=== PATIENT | female | born 1985 | race Caucasian/White ===

== ENCOUNTER → 2017-02-21 | Outpatient (CLI) | payer OTHER ==
[~2017-02-21] MED LIST: BIRTH CONTROL PO; INSULIN PUMP SQ-INSULIN; LEVO100T5 PO
[2017-02-21 12:12] LABS: HEMATOCRIT 41.6 % (34.6-47.8); HEMOGLOBIN 14.1 g/dL (11.7-16.4); WHITE BLOOD COUNT 9.7 x10^3/uL (3.4-10)
[2017-02-21 12:13] LABS: ASPARTATE AMINO TRANSFERASE 12 U/L (15-37); BLOOD UREA NITROGEN 12 mg/dL (7-18)
[2017-02-21 13:11] LABS: PATH.CAST-FLAG NOT PRESENT; SPERM-FLAG NOT PRESENT; SRC-FLAG NOT PRESENT; XTAL-FLAG NOT PRESENT; YLC-FLAG NOT PRESENT
== END | disposition home or self-care (01) ==
LOC: LAB 11:18
PROVIDERS: ATTEND Nurse Practitioner Family
DX: E10.65 Type 1 diabetes mellitus with hyperglycemia (principal); R21 Rash and other nonspecific skin eruption; M25.50 Pain in unspecified joint; R76.0 Raised antibody titer
CPT/HCPCS: 36415; 80053; 80061; 81001; 82043; 82306; 82570; 83036; 84156; 84439; 84443; 85025; 85651; 86140; 86160; 86225; 86235; 87077; 87086

== ENCOUNTER → 2017-06-04 | Outpatient (CLI) | payer OTHER | END | disposition home or self-care (01) | LOC: CFH 12:17 | PROVIDERS: ATTEND Physical Medicine & Rehabilitation | DX: M50.33 Other cervical disc degeneration, cervicothoracic region (principal); M54.81 Occipital neuralgia | CPT/HCPCS: 72141 ==

== ENCOUNTER → 2018-01-25 | Outpatient (CLI) | payer OTHER ==
[2018-01-25 08:31] LABS: ALANINE AMINOTRANSFERASE 24 U/L (12-78); ALBUMIN 3.5 g/dL (3.4-5.0); ANION GAP 7 mmol/L (5-15); CALCIUM 8.3 mg/dL (8.5-10.1); CHLORIDE 107 mmol/L (98-107)
[2018-01-25 08:40] LABS: ALKALINE PHOSPHATASE 48 U/L (45-117); BILIRUBIN,TOTAL 0.5 mg/dL (0.2-1.0); CHOL/HDL RATIO 2.7; CHOLESTEROL, TOTAL 153 mg/dL (140-239); CREATININE 0.72 mg/dL (0.55-1.02); FREE T4 (FREE THYROXINE) 1.37 ng/dL (0.76-1.46); HDL CHOL % 37 % (28-40); HDL CHOLESTEROL (DIRECT) 57 mg/dL (40-60); LDL CHOLESTEROL,CALCULATED 83 mg/dL (54-169); LDL/HDL RATIO 1.5 (0.5-3.0); TOTAL PROTEIN 7.3 g/dL (6.4-8.2); TRIGLYCERIDES 67 mg/dL (50-200); VLDL CHOLESTEROL 13 mg/dL (0-25)
== END | disposition home or self-care (01) ==
LOC: LAB 08:07
PROVIDERS: ATTEND Nurse Practitioner Family
DX: E10.65 Type 1 diabetes mellitus with hyperglycemia (principal)
CPT/HCPCS: 36415; 80053; 80061; 82043; 82306; 84439; 84443

== ENCOUNTER 2019-07-13 09:44 | Inpatient (IN) | payer OTHER ==
[~2019-07-13] VITALS: Ht 172.7 cm; Wt 69.1 kg
[2019-07-13] MEDS ORDERED: SODIUM CHLORIDE 0.9% 1,000 ML IV ONE ×2 (10:03→11:51)
--- NOTE | 2019-07-13 10:12 | NUR ---
PT HERE STATING "I THINK I'M IN DKA." PT STATES BLOOD SUGAR AT HOME IS "TOO HIGH TO READ." PT IS A TYPE 1 DIABETIC, WEARS INSULIN PUMP. PT AAO X 4, ROOM AIR, CALL LIGHT WITHIN REACH. PIV ESTABLISHED, LABS DRAWN, IV FLUIDS INFUSING. MD AT BEDSIDE FOR ASSESSMENT. PT DRESSED IN GOWN AND ATTACHED TO ALL MONITORS. EKG COMPLETED. PT STATES PREVIOUSLY NAUSEOUS AND VOMITTING BUT DENIES SYMTPOMS NOW, STATES "I'M THIRSTY."
[2019-07-13] MEDS ORDERED: SODIUM CHLORIDE 0.9% 1,000ML IVBOLUS ONE (10:30)
[2019-07-13] MEDS ORDERED: SODIUM CHLORIDE FLUSH 10ML SYR IVF ONE (10:30)
[2019-07-13 10:54] LABS: BASOPHILS # (AUTO) 0.04 x10^3/uL (0-0.1); BASOPHILS % (AUTO) 0 % (0-1); EOSINOPHILS # (AUTO) 0.07 x10^3/uL (0-0.4); EOSINOPHILS % (AUTO) 1 % (1-7); LYMPHOCYTES # (AUTO) 1.93 x10^3/uL (1-3.4); LYMPHOCYTES % (AUTO) 17 % (22-44); MD NO; MEAN CORPUSCULAR HGB CONC 33.8 g/dL (32.4-35.8); MEAN CORPUSCULAR VOLUME 94.7 fL (80-100); MEAN PLATELET VOLUME 8.8 fL (7.4-10.4); MONOCYTES # (AUTO) 0.36 x10^3/uL (0.2-0.8); MONOCYTES % (AUTO) 3 % (2-9); NEUTROPHILS # (AUTO) 9.25 x10^3/uL (1.8-6.8); NEUTROPHILS % (AUTO) 79 % (42-75); PLATELET COUNT 373 x10^3/uL (130-400); RED BLOOD COUNT 4.95 x10^6/uL (3.82-5.3); RED CELL DISTRIBUTION WIDTH 13.1 % (9.6-15.2)
[2019-07-13] MEDS ORDERED: MAALOX/HYOSCYAMINE/LIDOCAINE 45 ML BTL ONE (10:59)
[2019-07-13] MEDS ORDERED: MAALOX/HYOSCYAMINE/LIDOCAINE 45 ML BTL PO ONE (11:00)
--- NOTE | 2019-07-13 11:01 | NUR ---
PT MEDICATED PER ORDER.
[2019-07-13 11:06] LABS: ALANINE AMINOTRANSFERASE 29 U/L (12-78); ALBUMIN 4.5 g/dL (3.4-5.0); ANION GAP 23 mmol/L (5-15); CALCIUM 9.4 mg/dL (8.5-10.1); CHLORIDE 94 mmol/L (98-107)
[2019-07-13 11:12] LABS: ACETONE, SERUM Large (80mg/dL) mg/dL (Negative)
[2019-07-13 11:12] LABS: ALKALINE PHOSPHATASE 78 U/L (45-117); BILIRUBIN,TOTAL 1.9 mg/dL (0.2-1.0); CREATININE 1.45 mg/dL (0.55-1.02); TOTAL PROTEIN 9.1 g/dL (6.4-8.2)
--- NOTE | 2019-07-13 11:31 | NUR ---
SECOND PIV ESTBALISHED. LAB CALLED THIS RN WITH CRITICAL GLUCOSE OF 534, NOTIFIED AND AT BEDSIDE TO DISCUSS POC.
[2019-07-13] MEDS ORDERED: SODIUM CHLORIDE FLUSH 10ML SYR IVF PRN (12:00)
--- NOTE | 2019-07-13 12:08 | NUR ---
[facility] RECHECK 352.
--- NOTE | 2019-07-13 12:14 | NUR ---
REPORT GIVEN TO DONTE DUNLAP. PT TO TRANSFER TO INPATIENT STATUS.
--- NOTE | 2019-07-13 12:36 | NUR ---
PT TRANSFERRED TO ICU WITH THIS RN AND TECH, CHART AND BELONGINGS WITH PT.
[2019-07-13 12:40] VITALS: BP 137/65
[2019-07-13 13:12] LABS: ANION GAP 15 mmol/L (5-15); CALCIUM 6.9 mg/dL (8.5-10.1); CHLORIDE 112 mmol/L (98-107); CREATININE 0.85 mg/dL (0.55-1.02)
[2019-07-13] MEDS ORDERED: INSULIN REGULAR 100 UNITS/ML, 3ML VIAL IVPush ONE (14:00)
[2019-07-13] MEDS ORDERED: SODIUM CHLORIDE 0.9% 1,000 ML IV SCH (14:00)
[2019-07-13 15:06] LABS: ANION GAP 13 mmol/L (5-15); CALCIUM 8.3 mg/dL (8.5-10.1); CHLORIDE 107 mmol/L (98-107)
[2019-07-13 15:08] LABS: CREATININE 0.95 mg/dL (0.55-1.02)
[2019-07-13] MEDS ORDERED: REGULAR INSULIN 62.5 UNITS in SODIUM CHLORIDE 0.9% 249.375 ML IV PRN (15:30)
[2019-07-13 15:52] LABS: MICROSCOPIC NOT IND
[2019-07-13 15:55] LABS: CULTURE INDICATED? NO
[2019-07-13] MEDS ORDERED: D5%-0.45NACL+KCL 20MEQ 1,000 ML IV SCH (17:00)
[2019-07-13 18:46] LABS: ANION GAP 9 mmol/L (5-15); CALCIUM 8.2 mg/dL (8.5-10.1); CHLORIDE 111 mmol/L (98-107); CREATININE 0.82 mg/dL (0.55-1.02)
[2019-07-13] MEDS ORDERED: ACETAMINOPHEN 325 MG TABLET PO PRN (19:30)
[2019-07-13] MEDS ORDERED: ENOXAPARIN 40 MG/0.4 ML SQ SCH (19:30)
[2019-07-13] MEDS ORDERED: GLUCAGON 1 MG IM PRN (19:30)
[2019-07-13] MEDS ORDERED: DEXTROSE 50%, 50ML SYRINGE IVPush PRN (19:30)
[2019-07-13] MEDS ORDERED: DOCUSATE 100 MG CAPSULE PO PRN (19:30)
[2019-07-13] MEDS ORDERED: ONDANSETRON 2MG/ML, 2ML IVPush PRN (19:30)
[2019-07-13] MEDS ORDERED: DEXTROSE 4 GM TAB.CHEW PO PRN (19:30)
[2019-07-13] MEDS ORDERED: PROMETHAZINE 25 MG/ML, 1ML IM PRN (19:30)
[2019-07-13] MEDS ORDERED: BISACODYL 10 MG SUPP PR PRN (19:30)
[2019-07-13] MEDS ORDERED: POLYETHYLENE GLYCOL 17 GM PACKET PO PRN (19:30)
[2019-07-13] MEDS: SODIUM CHLORIDE FLUSH 10ML SYR IVF SCH (19:56)
[2019-07-13] MEDS: SODIUM CHLORIDE 0.9% 1,000 ML IV SCH (19:56)
[2019-07-13] MEDS: INSULIN LISPRO 100 UNITS/ML, PEN SQ-INSULIN SCH (21:00)
[2019-07-14] MEDS: SODIUM CHLORIDE 0.9% 1,000 ML IV SCH ×3 (01:00→09:49)
[2019-07-14 04:00] VITALS: BP 116/70
[2019-07-14 04:57] LABS: ALBUMIN 3.1 g/dL (3.4-5.0); ANION GAP 8 mmol/L (5-15); CALCIUM 8.2 mg/dL (8.5-10.1); CHLORIDE 114 mmol/L (98-107)
[2019-07-14 04:59] LABS: BASOPHILS # (AUTO) 0.04 x10^3/uL (0-0.1); BASOPHILS % (AUTO) 1 % (0-1); EOSINOPHILS # (AUTO) 0.24 x10^3/uL (0-0.4); EOSINOPHILS % (AUTO) 3 % (1-7); LYMPHOCYTES # (AUTO) 3.36 x10^3/uL (1-3.4); LYMPHOCYTES % (AUTO) 41 % (22-44); MD NO; MEAN CORPUSCULAR HEMOGLOBIN 31.7 pg (27.0-34.8); MEAN CORPUSCULAR HGB CONC 33.8 g/dL (32.4-35.8); MEAN CORPUSCULAR VOLUME 93.6 fL (80-100); MONOCYTES # (AUTO) 0.41 x10^3/uL (0.2-0.8); MONOCYTES % (AUTO) 5 % (2-9); NEUTROPHILS # (AUTO) 4.09 x10^3/uL (1.8-6.8); NEUTROPHILS % (AUTO) 50 % (42-75); PLATELET COUNT 304 x10^3/uL (130-400); RED BLOOD COUNT 4.21 x10^6/uL (3.82-5.3); RED CELL DISTRIBUTION WIDTH 13.3 % (9.6-15.2)
[2019-07-14 04:59] LABS: CREATININE 0.76 mg/dL (0.55-1.02)
[2019-07-14 05:00] LABS: ALANINE AMINOTRANSFERASE 21 U/L (12-78); ALKALINE PHOSPHATASE 50 U/L (45-117); BILIRUBIN,TOTAL 0.8 mg/dL (0.2-1.0); TOTAL PROTEIN 6.6 g/dL (6.4-8.2)
[2019-07-14] MEDS ORDERED: LEVOTHYROXINE 100 MCG TABLET PO SCH (06:00)
[2019-07-14] MEDS: INSULIN LISPRO 100 UNITS/ML, PEN SQ-INSULIN SCH ×2 (07:00→11:00)
[2019-07-14] MEDS: SODIUM CHLORIDE FLUSH 10ML SYR IVF SCH (09:00)
[2019-07-14] MEDS ORDERED: POTASSIUM ACID PHOSPHATE 500 MG TABLET.SOL PO SCH (11:30)
[2019-07-14] MEDS ORDERED: FLUC200T PO (11:46)
[2019-07-14] MEDS ORDERED: FLUCONAZOLE 200 MG TABLET PO SCH (12:00)
[2019-07-14] MEDS ORDERED: SODIUM CHLORIDE 0.9% 1,000 ML IV SCH (14:00)
== END 2019-07-14 12:15 | disposition home or self-care (01) | DRG 638 ==
LOC: ED 11:38 → EDIP 11:51 → CCU 12:31 → DCLOUNGE 07-14 12:10
PROVIDERS: ADMIT Internal Medicine; ATTEND Internal Medicine
DX: E10.10 Type 1 diabetes mellitus with ketoacidosis without coma (principal); B37.0 Candidal stomatitis; N17.9 Acute kidney failure, unspecified; D72.829 Elevated white blood cell count, unspecified; E03.9 Hypothyroidism, unspecified; E83.39 Other disorders of phosphorus metabolism; E86.0 Dehydration; L93.0 Discoid lupus erythematosus; Z83.3 Family history of diabetes mellitus; Z96.41 Presence of insulin pump (external) (internal)
CPT/HCPCS: 36415; 71045; 80048; 80053; 81003; 82010; 82800; 82962; 83036; 83690; 83735; 84100; 84703; 85025; 87081; 87880; 93005; G0378; J1650; J1815; J3480; J7030; J7050

== ENCOUNTER → 2020-01-24 | Outpatient (CLI) | payer OTHER ==
[~2020-01-24] MED LIST changes: +FLUC200T PO
[2020-01-24 12:53] LABS: BASOPHILS # (AUTO) 0.03 x10^3/uL (0-0.1); BASOPHILS % (AUTO) 0 % (0-1); EOSINOPHILS # (AUTO) 0.23 x10^3/uL (0-0.4); EOSINOPHILS % (AUTO) 2 % (1-7); LYMPHOCYTES # (AUTO) 2.47 x10^3/uL (1-3.4); LYMPHOCYTES % (AUTO) 25 % (22-44); MD NO; MEAN CORPUSCULAR HEMOGLOBIN 31.1 pg (27.0-34.8); MEAN CORPUSCULAR HGB CONC 32.9 g/dL (32.4-35.8); MEAN CORPUSCULAR VOLUME 94.6 fL (80-100); MEAN PLATELET VOLUME 8.3 fL (7.4-10.4); MONOCYTES # (AUTO) 0.37 x10^3/uL (0.2-0.8); MONOCYTES % (AUTO) 4 % (2-9); NEUTROPHILS # (AUTO) 6.96 x10^3/uL (1.8-6.8); NEUTROPHILS % (AUTO) 69 % (42-75); PLATELET COUNT 301 x10^3/uL (130-400); RED BLOOD COUNT 4.65 x10^6/uL (3.82-5.3); RED CELL DISTRIBUTION WIDTH 12.1 % (9.6-15.2)
[2020-01-24 13:04] LABS: ALANINE AMINOTRANSFERASE 18 U/L (12-78); ALBUMIN 3.7 g/dL (3.4-5.0); ANION GAP 6 mmol/L (5-15); CALCIUM 8.9 mg/dL (8.5-10.1); CHLORIDE 104 mmol/L (98-107); CREATININE 0.79 mg/dL (0.55-1.02)
[2020-01-24 13:13] LABS: ALKALINE PHOSPHATASE 44 U/L (45-117); BILIRUBIN,TOTAL 0.7 mg/dL (0.2-1.0); CHOL/HDL RATIO 2.1; CHOLESTEROL, TOTAL 143 mg/dL (140-239); FREE T4 (FREE THYROXINE) 1.03 ng/dL (0.76-1.46); HDL CHOL % 48 % (28-40); HDL CHOLESTEROL (DIRECT) 69 mg/dL (40-60); LDL CHOLESTEROL,CALCULATED 61 mg/dL (54-169); LDL/HDL RATIO 0.9 (0.5-3.0); TOTAL PROTEIN 7.4 g/dL (6.4-8.2); TRIGLYCERIDES 67 mg/dL (50-200); VLDL CHOLESTEROL 13 mg/dL (0-25)
== END | disposition home or self-care (01) ==
LOC: LAB 12:15
PROVIDERS: ATTEND Internal Medicine
DX: E03.9 Hypothyroidism, unspecified (principal); E10.65 Type 1 diabetes mellitus with hyperglycemia
CPT/HCPCS: 36415; 80053; 80061; 82043; 82570; 83036; 84439; 84443; 84480; 85025

== ENCOUNTER → 2020-03-19 | Outpatient (CLI) | payer OTHER ==
[2020-03-19 18:26] LABS: FREE T4 (FREE THYROXINE) 1.09 ng/dL (0.76-1.46)
== END | disposition home or self-care (01) ==
LOC: LAB 17:40
PROVIDERS: ATTEND Internal Medicine
DX: E03.9 Hypothyroidism, unspecified (principal)
CPT/HCPCS: 36415; 84439; 84443; 84480

== ENCOUNTER → 2020-08-21 | Outpatient (CLI) | payer OTHER ==
[2020-08-21 10:51] LABS: FREE T4 (FREE THYROXINE) 0.99 ng/dL (0.76-1.46)
== END | disposition home or self-care (01) ==
LOC: LAB 10:02
PROVIDERS: ATTEND Internal Medicine
DX: E10.65 Type 1 diabetes mellitus with hyperglycemia (principal); E03.9 Hypothyroidism, unspecified
CPT/HCPCS: 36415; 82043; 82570; 83036; 84439; 84443